=== PATIENT | male | born 1980 | race Caucasian/White ===

== ENCOUNTER 2016-09-03 11:09 | Emergency (ER) | payer SELFPAY ==
[~2016-09-03] VITALS: Ht 167.6 cm; Wt 75.0 kg
[2016-09-03] MEDS ORDERED: CLIN300C3 PO (11:43)
[2016-09-03 11:53] VITALS: BP 106/67
[2016-09-03] MEDS ORDERED: HYDROCODONE/ACETAMINOPHEN 5-325 MG TABLET PO ONE (12:15)
== END 2016-09-03 12:35 | disposition home or self-care (01) ==
LOC: EMS 11:11
DX: K04.7 Periapical abscess without sinus (principal); K02.9 Dental caries, unspecified; F12.90 Cannabis use, unspecified, uncomplicated; Z88.0 Allergy status to penicillin
CPT/HCPCS: 99283

== ENCOUNTER 2017-05-12 12:03 | Inpatient (IN) | payer MEDICAID, OTHER ==
[~2017-05-12] VITALS: Ht 167.6 cm; Wt 63.0 kg
[~2017-05-12 12:03] MED LIST: CLIN300C3 PO
[2017-05-12 12:41] LABS: BASOPHILS % (AUTO) 0.6 % (0.0-2.0); EOSINOPHILS % (AUTO) 0.5 % (1.0-6.0); HEMATOCRIT 40.4 % (41-53); HEMOGLOBIN 13.9 g/dL (13.5-17.5); LYMPHOCYTES # (AUTO) 1.4 K/uL (1.0-4.8); LYMPHOCYTES % (AUTO) 18.2 % (22.0-44.0); MEAN CORPUSCULAR HEMOGLOBIN 30.1 pg (26.0-34.0); MEAN CORPUSCULAR HGB CONC 34.4 G/dL (31.0-37.0); MEAN CORPUSCULAR VOLUME 88 fL (80-100); MONOCYTES # (AUTO) 0.6 K/uL (0.1-1.0); MONOCYTES % (AUTO) 7.4 % (2.0-9.0); NEUTROPHILS # (AUTO) 5.5 K/uL (1.8-7.7); NEUTROPHILS % (AUTO) 73.3 % (40.0-70.0); PLATELET COUNT (AUTO) 152 K/uL (150-450); RED BLOOD CELL COUNT(AUTO) 4.62 MIL/uL (4.50-5.90); RED CELL DISTRIBUTION WIDTH 14.4 % (11.5-14.5)
[2017-05-12 12:48] LABS: ANION GAP 8 mmol/L (8-16); CALCIUM, TOTAL 9.2 mg/dL (8.8-10.5); CARBON DIOXIDE 28 mmol/L (22-29); CHLORIDE 99 mmol/L (98-107); CREATININE 1.02 mg/dL (0.60-1.30); GLOMERULAR FILTR. RATE CALC > 60 mL/min (>60); GLUCOSE,RANDOM 107 mg/dL (70-110); POTASSIUM 3.6 mmol/L (3.5-5.1); SODIUM SERUM 135 mmol/L (136-145); UREA NITROGEN, BLOOD 14 mg/dL (7-18)
[2017-05-12 12:54] LABS: ALANINE AMINOTRANSFERASE 26 U/L (12-78); ALBUMIN 4.7 g/dL (3.4-5.0); ALKALINE PHOSPHATASE 78 U/L (46-116); ASPARTATE AMINOTRANSFERASE 17 U/L (15-37); BILIRUBIN,TOTAL 0.9 mg/dL (0.1-1.0); TOTAL PROTEIN, SERUM 8.2 g/dL (6.4-8.2)
[2017-05-12] MEDS ORDERED: SERT50TA12 PO (16:13)
[2017-05-12] MEDS ORDERED: PROZ10 PO (16:13)
[2017-05-12] MEDS ORDERED: TRAZ150 PO (16:13)
[2017-05-12] MEDS ORDERED: LORazepam 2 MG TABLET PO ONE (16:30)
[2017-05-12 17:10] LABS: CHOL/HDL RATIO 3.8 (4.2-7.3); CHOLESTEROL 215 mg/dL (131-200); HDL CHOLESTEROL 56 mg/dL (40-60); LDL CHOL (CALC.) 145 mg/dL (0-130); TRIGLYCERIDES 71 mg/dL (15-150)
[2017-05-12 19:54] VITALS: BP 115/61
[2017-05-12] MEDS ORDERED: INFLUENZA VIRUS VACCINE QVS 2017-18 (3YR+)/PF 60 MCG/0.5 ML SYRINGE IM ONE (20:45)
[2017-05-12] MEDS: LORazepam 2 MG TABLET PO PRN (21:24)
[2017-05-12] MEDS: ZOLPIDEM TARTRATE 10 MG TABLET PO PRN (21:24)
[2017-05-13] MEDS ORDERED: LOPERAMIDE HCL 2 MG CAPSULE PO PRN (06:45)
[2017-05-13] MEDS ORDERED: PETROLATUM,WHITE 71 GM JELLY TP PRN (06:45)
[2017-05-13] MEDS ORDERED: MAG HYDROX/AL HYDROX/SIMETH ES 30 ML SUSPENSION UDCUP PO PRN (06:45)
[2017-05-13] MEDS ORDERED: IBUPROFEN 600 MG TABLET PO PRN (06:45)
[2017-05-13] MEDS ORDERED: BACITRACIN 28.4 GM OINTMENT TP PRN (06:45)
[2017-05-13] MEDS ORDERED: ONDANSETRON HCL 4 MG TABLET PO PRN (06:45)
[2017-05-13] MEDS ORDERED: CloNIDine HCL 0.1 MG TABLET PO PRN (06:45)
[2017-05-13] MEDS ORDERED: ALBUTEROL SULFATE HFA 90 MCG/PUFF 8 GM INHALER IH PRN (06:45)
[2017-05-13] MEDS ORDERED: ACETAMINOPHEN 325 MG TABLET PO PRN (06:45)
[2017-05-13] MEDS ORDERED: MAGNESIUM HYDROXIDE SUSPENSION 30 ML UDCUP PO PRN (06:45)
[2017-05-13] MEDS ORDERED: BENZOCAINE/MENTHOL LOZENGE [8 LOZENGES/PACKET] MM PRN (07:00)
[2017-05-13 09:36] VITALS: BP 112/70
[2017-05-13] MEDS: FLUoxetine HCL 20 MG CAPSULE PO SCH ×2 (12:13→16:07)
[2017-05-13] MEDS: LORazepam 2 MG TABLET PO PRN ×3 (12:14→22:09)
[2017-05-13 16:17] VITALS: BP 133/75
[2017-05-13] MEDS: HALOPERIDOL 5 MG TABLET PO PRN (20:15)
[2017-05-13] MEDS: TraZODone HCL 150 MG TABLET PO SCH (20:16)
[2017-05-13] MEDS: ZOLPIDEM TARTRATE 10 MG TABLET PO PRN (22:09)
[2017-05-14 08:15] VITALS: BP 121/73
[2017-05-14] MEDS: FLUoxetine HCL 20 MG CAPSULE PO SCH ×2 (09:06→17:17)
[2017-05-14] MEDS: LORazepam 2 MG TABLET PO PRN ×3 (09:09→18:38)
[2017-05-14 17:00] VITALS: BP 119/72
[2017-05-14] MEDS: TraZODone HCL 150 MG TABLET PO SCH (20:06)
[2017-05-14] MEDS: ZOLPIDEM TARTRATE 10 MG TABLET PO PRN (20:51)
[2017-05-15 08:00] VITALS: BP 121/73
[2017-05-15] MEDS: FLUoxetine HCL 20 MG CAPSULE PO SCH (10:31)
[2017-05-15] MEDS: HALOPERIDOL 5 MG TABLET PO PRN (10:32)
[2017-05-15] MEDS: LORazepam 2 MG TABLET PO PRN (10:32)
[2017-05-15] MEDS ORDERED: FLUO-191 PO (11:04)
== END 2017-05-15 14:42 | disposition home or self-care (01) | DRG 751 ==
LOC: EMS 12:06 → 3EI 17:19
PROVIDERS: ADMIT Psychiatry & Neurology Child & Adolescent Psychiatry; ATTEND Psychiatry & Neurology Child & Adolescent Psychiatry
DX: F32.2 Major depressive disorder, single episode, severe without psychotic features (principal); E87.1 Hypo-osmolality and hyponatremia; R45.851 Suicidal ideations; Z91.19 Patient's noncompliance with other medical treatment and regimen; E78.5 Hyperlipidemia, unspecified; F12.10 Cannabis abuse, uncomplicated; F41.9 Anxiety disorder, unspecified; G47.00 Insomnia, unspecified; Z88.0 Allergy status to penicillin; Z71.51 Drug abuse counseling and surveillance of drug abuser; Z72.89 Other problems related to lifestyle; Z28.21 Immunization not carried out because of patient refusal
CPT/HCPCS: 99285; G0480

== ENCOUNTER 2017-05-15 18:55 | Inpatient (IN) | payer MEDICAID ==
[~2017-05-15] VITALS: Ht 165.1 cm; Wt 62.9 kg
[~2017-05-15 18:55] MED LIST changes: -CLIN300C3 PO; +FLUO-191 PO; +PROZ10 PO; +SERT50TA12 PO; +TRAZ150 PO
[2017-05-15 19:43] LABS: BASOPHILS # (AUTO) 0.03 K/uL (0.00-0.20); BASOPHILS % (AUTO) 0.3 % (0.0-2.0); EOSINOPHILS # (AUTO) 0.11 K/uL (0.00-0.70); EOSINOPHILS % (AUTO) 0.95 % (1.0-6.0); HEMATOCRIT 39.4 % (41-53); LYMPHOCYTES # (AUTO) 1.9 K/uL (1.0-4.8); LYMPHOCYTES % (AUTO) 16.8 % (22.0-44.0); MEAN CORPUSCULAR HEMOGLOBIN 30.1 pg (26.0-34.0); MEAN CORPUSCULAR VOLUME 91 fL (80-100); MONOCYTES # (AUTO) 0.5 K/uL (0.1-1.0); MONOCYTES % (AUTO) 4.7 % (2.0-9.0); NEUTROPHILS # (AUTO) 8.7 K/uL (1.8-7.7); NEUTROPHILS % (AUTO) 77.2 % (40.0-70.0); PLATELET COUNT (AUTO) 117 K/uL (150-450); RED BLOOD CELL COUNT(AUTO) 4.32 MIL/uL (4.50-5.90)
[2017-05-15 19:54] LABS: ANION GAP 10 mmol/L (8-16); CARBON DIOXIDE 27 mmol/L (22-29); CHLORIDE 101 mmol/L (98-107); CREATININE 0.94 mg/dL (0.60-1.30); GLOMERULAR FILTR. RATE CALC > 60 mL/min (>60); GLUCOSE,RANDOM 108 mg/dL (70-110); POTASSIUM 3.7 mmol/L (3.5-5.1); SODIUM SERUM 138 mmol/L (136-145); UREA NITROGEN, BLOOD 22 mg/dL (7-18)
[2017-05-15 20:00] LABS: ALANINE AMINOTRANSFERASE 22 U/L (12-78); ALBUMIN 4.3 g/dL (3.4-5.0); ALKALINE PHOSPHATASE 67 U/L (46-116); ASPARTATE AMINOTRANSFERASE 12 U/L (15-37); BILIRUBIN,TOTAL 0.6 mg/dL (0.1-1.0); TOTAL PROTEIN, SERUM 7.8 g/dL (6.4-8.2)
[2017-05-15] MEDS ORDERED: HALOPERIDOL 5 MG TABLET PO PRN (20:45)
[2017-05-16 01:46] VITALS: BP 113/65
[2017-05-16] MEDS ORDERED: INFLUENZA VIRUS VACCINE QVS 2017-18 (3YR+)/PF 60 MCG/0.5 ML SYRINGE IM ONE (02:30)
[2017-05-16 08:59] VITALS: BP 112/66
[2017-05-16] MEDS ORDERED: BENZOCAINE/MENTHOL LOZENGE MM PRN (10:00)
[2017-05-16] MEDS ORDERED: IBUPROFEN 600 MG TABLET PO PRN (10:00)
[2017-05-16] MEDS ORDERED: MAGNESIUM HYDROXIDE SUSPENSION 30 ML UDCUP PO PRN (10:00)
[2017-05-16] MEDS ORDERED: BACITRACIN 28.4 GM OINTMENT TP PRN (10:00)
[2017-05-16] MEDS ORDERED: CloNIDine HCL 0.1 MG TABLET PO PRN (10:00)
[2017-05-16] MEDS ORDERED: PETROLATUM,WHITE 71 GM JELLY TP PRN (10:00)
[2017-05-16] MEDS ORDERED: LOPERAMIDE HCL 2 MG CAPSULE PO PRN (10:00)
[2017-05-16] MEDS ORDERED: ACETAMINOPHEN 325 MG TABLET PO PRN (10:00)
[2017-05-16] MEDS ORDERED: MAG HYDROX/AL HYDROX/SIMETH ES 30 ML SUSPENSION UDCUP PO PRN (10:00)
[2017-05-16] MEDS ORDERED: ALBUTEROL SULFATE HFA 90 MCG/PUFF 8 GM INHALER IH PRN (10:00)
[2017-05-16] MEDS ORDERED: ONDANSETRON HCL 4 MG TABLET PO PRN (10:00)
[2017-05-16] MEDS: LORazepam 2 MG TABLET PO PRN ×2 (13:28→17:30)
[2017-05-16] MEDS: FLUoxetine HCL 20 MG CAPSULE PO SCH (16:31)
[2017-05-16 17:47] VITALS: BP 112/65
[2017-05-16] MEDS: TraZODone HCL 150 MG TABLET PO SCH (20:10)
[2017-05-17 05:37] VITALS: BP 110/68
[2017-05-17] MEDS: FLUoxetine HCL 20 MG CAPSULE PO SCH ×2 (07:58→16:13)
[2017-05-17 08:34] VITALS: BP 132/72
[2017-05-17] MEDS: LORazepam 2 MG TABLET PO PRN ×2 (12:53→17:06)
[2017-05-17 17:30] VITALS: BP 106/65
[2017-05-17] MEDS: TraZODone HCL 150 MG TABLET PO SCH (20:21)
[2017-05-17] MEDS: ZOLPIDEM TARTRATE 10 MG TABLET PO PRN (21:13)
[2017-05-18 05:55] VITALS: BP 120/81
[2017-05-18] MEDS: FLUoxetine HCL 20 MG CAPSULE PO SCH ×2 (08:21→16:25)
[2017-05-18] MEDS: LORazepam 2 MG TABLET PO PRN ×3 (08:21→17:57)
[2017-05-18 08:26] VITALS: BP 108/66
[2017-05-18 13:30] VITALS: BP 108/65
[2017-05-18 17:56] VITALS: BP 113/65
[2017-05-18] MEDS: TraZODone HCL 150 MG TABLET PO SCH (21:14)
[2017-05-18] MEDS: ZOLPIDEM TARTRATE 10 MG TABLET PO PRN (21:19)
[2017-05-19 01:01] VITALS: BP 110/68
[2017-05-19] MEDS: FLUoxetine HCL 20 MG CAPSULE PO SCH (08:45)
[2017-05-19] MEDS: LORazepam 2 MG TABLET PO PRN ×2 (08:53→12:57)
[2017-05-19 10:41] VITALS: BP 105/66
== END 2017-05-19 13:30 | disposition home or self-care (01) | DRG 754 ==
LOC: EMS 18:56 → B2S 22:27
PROVIDERS: ADMIT Psychiatry & Neurology Child & Adolescent Psychiatry; ATTEND Psychiatry & Neurology Child & Adolescent Psychiatry
PROC: 3E0234Z Introduction of Serum, Toxoid and Vaccine into Muscle, Percutaneous Approach (ICD-10-PCS; principal; 2017-05-16)
DX: F32.9 Major depressive disorder, single episode, unspecified (principal); D69.6 Thrombocytopenia, unspecified; E78.5 Hyperlipidemia, unspecified; G47.00 Insomnia, unspecified; F41.9 Anxiety disorder, unspecified; F12.10 Cannabis abuse, uncomplicated; Z23 Encounter for immunization; Z88.0 Allergy status to penicillin; Z79.899 Other long term (current) drug therapy
CPT/HCPCS: 80074; 85049; 87081; 99285; G0480